=== PATIENT | female | born 1945 | race Caucasian/White ===

== ENCOUNTER 2021-03-22 14:25 | Emergency (ER) | payer OTHER, MEDICARE ==
[~2021-03-22] VITALS: Ht 165.1 cm; Wt 83.9 kg
[2021-03-22] MEDS ORDERED: TETANUS/DIPHTHERIA TOX ADULT 0.5 ML SYR IM ONE (16:30)
[2021-03-22 17:09] VITALS: BP 127/66
== END 2021-03-22 17:11 | disposition home or self-care (01) ==
LOC: ER 14:40
DX: S00.83XA Contusion of other part of head, initial encounter (principal); S51.011A Laceration without foreign body of right elbow, initial encounter; W01.0XXA Fall on same level from slipping, tripping and stumbling without subsequent striking against object, initial encounter; Y92.008 Other place in unspecified non-institutional (private) residence as the place of occurrence of the external cause; K21.9 Gastro-esophageal reflux disease without esophagitis; Z86.73 Personal history of transient ischemic attack (TIA), and cerebral infarction without residual deficits
CPT/HCPCS: 70450; 72125; 90471; 90714; 99284

== ENCOUNTER 2025-01-01 13:59 | Inpatient (IN) | payer MEDICARE ==
[~2025-01-01] VITALS: Ht 165.1 cm; Wt 83.9 kg
[~2025-01-01 13:59] MED LIST: BUSPIRONE HCL5 MG PO; OXCARBAZEPINE150 MG PO; PANTOPRAZOLE SO40 MG PO; SERTRALINE HCL100 MG PO
[2025-01-01 15:40] LABS: BASOPHILS % 0.3 % (0.0-1.0); EOSINOPHILS # (AUTO) 0.2 (0.0-0.4); EOSINOPHILS % 1.6 % (0.0-6.0); HEMATOCRIT 36.1 % (34.2-44.1); HEMOGLOBIN 11.5 g/dL (12.0-16.0); LYMPHOCYTES # (AUTO) 1.1 (1.0-3.2); MEAN CORPUSCULAR HEMOGLOBIN 27.6 pg (28-32); MEAN CORPUSCULAR HGB CONC 31.9 g/dL (31-35); MEAN CORPUSCULAR VOLUME 86.6 fL (81-99); MONOCYTES # (AUTO) 0.7 (0.2-0.8); MONOCYTES % 6.1 % (4.4-11.3); NEUTROPHILS # (AUTO) 8.8 (2.1-6.9); NEUTROPHILS % 80.7 % (38.7-80.0); PLATELET COUNT 365 x10e3/uL (140-360); RED BLOOD COUNT 4.17 x10e6/uL (3.6-5.1); RED CELL DISTRIBUTION WIDTH 16.1 % (11.7-14.4); WHITE BLOOD COUNT 10.91 x10e3/uL (4.8-10.8)
[2025-01-01 15:43] LABS: CLARITY,URINE SL CLOUDY (CLEAR); COLOR,URINE YELLOW (YELLOW); GLUCOSE, URINE NEGATIVE (NEGATIVE); KETONES,URINE TRACE (NEGATIVE); LEUKOCYTE ESTERASE ,URINE NEGATIVE (NEGATIVE); NITRITE,URINE POSITIVE (NEGATIVE); PH,URINE 6 (5 - 7); PROTEIN,URINE DIPSTICK NEGATIVE (NEGATIVE); URINE UROBILINOGEN 0.2 mg/dL (0.2 - 1)
[2025-01-01 15:44] LABS: BILIRUBIN,URINE NEGATIVE (NEGATIVE)
[2025-01-01 15:57] LABS: BACTERIA,URINE MANY /HPF; EPITHELIAL CELLS,URINE MANY /LPF; WBC,URINE (MAN) 0-5 /HPF (0-5)
[2025-01-01 15:58] LABS: CALCIUM OXALATE CRYSTALS,UR MODERATE (FEW)
[2025-01-01 16:02] LABS: ALBUMIN 2.3 g/dL (3.5-5.0); ALBUMIN/GLOBULIN RATIO 0.9 (0.8-2.0); ANION GAP 13.6 mmol/L (8-16); BILIRUBIN,TOTAL 0.5 mg/dL (0.2-1.2); CREATININE, SERUM 0.72 mg/dL (0.57-1.11); POTASSIUM 4.6 mmol/L (3.5-5.1); TOTAL PROTEIN 4.9 g/dL (6.5-8.1)
[2025-01-01 16:08] LABS: TROPONIN I 0.043 ng/mL (0-0.300)
[2025-01-01] MEDS ORDERED: ONDANSETRON HCL INJ 2MG/ML 2ML 2 MG/ML VIAL IV PRN (16:30)
[2025-01-01] MEDS ORDERED: SODIUM CHLORIDE 0.9% 1000ML 1,000 ML IV SCH (16:30)
[2025-01-01 18:06] VITALS: TEMP 97.5
[2025-01-01 19:14] VITALS: PULSE 69; RESP 19
[2025-01-01 20:00] VITALS: BP 142/65; PULSE 78; RESP 18; TEMP 97.5; O2SAT 100
[2025-01-01] MEDS: SODIUM CHLORIDE 0.9% 1000ML 1,000 ML IV SCH (20:41)
[2025-01-01] MEDS ORDERED: POLYETHYLENE GLYCOL 3350 17 GM PACK PO PRN (21:45)
[2025-01-01] MEDS ORDERED: ACETAMINOPHEN 325 MG TAB PO PRN (21:45)
[2025-01-01 23:04] LABS: TROPONIN I 0.041 ng/mL (0-0.300)
[2025-01-02] VITALS (13 sets, daily range): BP systolic 116–161; BP diastolic 72–96; PULSE 69–82; RESP 16–22; TEMP 96.7–97.8; O2SAT 95–100
[2025-01-02 06:08] LABS: BASOPHILS % 0.5 % (0.0-1.0); EOSINOPHILS # (AUTO) 0.2 (0.0-0.4); EOSINOPHILS % 3.1 % (0.0-6.0); HEMATOCRIT 34.2 % (34.2-44.1); HEMOGLOBIN 10.7 g/dL (12.0-16.0); LYMPHOCYTES # (AUTO) 0.9 (1.0-3.2); LYMPHOCYTES % 13.3 % (18.0-39.1); MEAN CORPUSCULAR HEMOGLOBIN 27.6 pg (28-32); MEAN CORPUSCULAR HGB CONC 31.3 g/dL (31-35); MEAN CORPUSCULAR VOLUME 88.4 fL (81-99); MONOCYTES # (AUTO) 0.7 (0.2-0.8); MONOCYTES % 10.6 % (4.4-11.3); NEUTROPHILS # (AUTO) 4.7 (2.1-6.9); NEUTROPHILS % 71.9 % (38.7-80.0); PLATELET COUNT 299 x10e3/uL (140-360); RED BLOOD COUNT 3.87 x10e6/uL (3.6-5.1); RED CELL DISTRIBUTION WIDTH 16.2 % (11.7-14.4); WHITE BLOOD COUNT 6.54 x10e3/uL (4.8-10.8)
[2025-01-02 06:43] LABS: ALBUMIN/GLOBULIN RATIO 0.9 (0.8-2.0); BILIRUBIN,TOTAL 0.8 mg/dL (0.2-1.2); CALCIUM 7.7 mg/dL (8.4-10.2); CREATININE, SERUM 0.75 mg/dL (0.57-1.11); TOTAL PROTEIN 4.3 g/dL (6.5-8.1)
[2025-01-02 06:45] LABS: TROPONIN I 0.017 ng/mL (0-0.300)
[2025-01-02 06:58] LABS: CHOL/HDL RATIO 1.8 (3.0-3.6); MAGNESIUM 1.7 MG/DL (1.3-2.1); PHOSPHORUS 3.3 MG/DL (2.3-4.7)
[2025-01-02 07:14] LABS: FOLATE 14.9 ng/mL (7.0-15.4)
[2025-01-02 07:19] LABS: FREE T4 (FREE THYROXINE) 0.87 ng/dL (0.8-1.8); THYROID STIMULATING HORMONE 1.711 uIU/mL (0.350-4.940)
[2025-01-02] MEDS: PANTOPRAZOLE SODIUM 20 MG TABLET.DR PO SCH (08:24)
[2025-01-02] MEDS: DOCUSATE SODIUM 100 MG CAP PO SCH (08:25)
[2025-01-02] MEDS: MAGNESIUM SULF 1GRAM/DEXTROSE 100 ML IV ONE (09:24)
[2025-01-02] MEDS ORDERED: FLECAINIDE ACE100 MG PO (12:36)
[2025-01-02] MEDS ORDERED: ELIQUIS5 MG PO (12:36)
[2025-01-02] MEDS ORDERED: RIVASTIGMINE1 EAC1 TD (12:36)
[2025-01-02] MEDS ORDERED: SERTRALINE HCL25 MG PO (12:36)
[2025-01-02] MEDS ORDERED: LEVOTHYROXINE25 MCG PO (12:36)
[2025-01-02] MEDS ORDERED: ASCORBIC ACID500 M2 PO (12:45)
[2025-01-02] MEDS ORDERED: FEROSUL325 MG PO (12:45)
[2025-01-02] MEDS ORDERED: VITAMIN B-121000 MCG PO (12:45)
[2025-01-02] MEDS: BUSPIRONE HCL 5 MG TAB PO SCH (15:09)
[2025-01-02] MEDS: APIXABAN 5 MG TABLET PO SCH (16:39)
[2025-01-03] VITALS (12 sets, daily range): BP systolic 108–195; BP diastolic 59–93; PULSE 72–87; RESP 16–22; TEMP 96.7–98; O2SAT 96–100
[2025-01-03] MEDS: LEVOTHYROXINE SODIUM 50 MCG TAB PO SCH (05:36)
[2025-01-03] MEDS: ASCORBIC ACID 500 MG TAB PO SCH (08:38)
[2025-01-03] MEDS: PANTOPRAZOLE SOD 40 MG TABEC PO SCH (08:38)
[2025-01-03] MEDS: MEROPENEM 1 GM in SODIUM CHLORIDE 0.9% 100 ML IV SCH ×2 (08:38→20:20)
[2025-01-03] MEDS: Morphine 2mg Syringe 2 MG/ML SYR IV PRN (12:10)
[2025-01-03] MEDS: HYDRALAZINE HCL 20 MG/ML VIAL IV PRN (12:10)
[2025-01-04] VITALS (9 sets, daily range): BP systolic 108–162; BP diastolic 65–97; PULSE 72–83; RESP 18–21; TEMP 97.3–98.2; O2SAT 95–100
[2025-01-04 06:22] LABS: BASOPHILS % 0.3 % (0.0-1.0); EOSINOPHILS # (AUTO) 0.3 (0.0-0.4); EOSINOPHILS % 4.6 % (0.0-6.0); HEMATOCRIT 35.2 % (34.2-44.1); LYMPHOCYTES # (AUTO) 0.9 (1.0-3.2); LYMPHOCYTES % 13.7 % (18.0-39.1); MEAN CORPUSCULAR HEMOGLOBIN 27.2 pg (28-32); MEAN CORPUSCULAR HGB CONC 31.3 g/dL (31-35); MEAN CORPUSCULAR VOLUME 86.9 fL (81-99); MONOCYTES # (AUTO) 0.6 (0.2-0.8); MONOCYTES % 9.4 % (4.4-11.3); NEUTROPHILS # (AUTO) 4.5 (2.1-6.9); NEUTROPHILS % 71.4 % (38.7-80.0); PLATELET COUNT 311 x10e3/uL (140-360); RED BLOOD COUNT 4.05 x10e6/uL (3.6-5.1); RED CELL DISTRIBUTION WIDTH 16.3 % (11.7-14.4); WHITE BLOOD COUNT 6.28 x10e3/uL (4.8-10.8)
[2025-01-04 06:48] LABS: BLOOD UREA NITROGEN 11 mg/dL (7-26); BUN/CREATININE RATIO 16 (6-25); CALCIUM 7.7 mg/dL (8.4-10.2); CARBON DIOXIDE 21 mmol/L (22-29); CHLORIDE 107 mmol/L (98-107); CREATININE, SERUM 0.67 mg/dL (0.57-1.11); EST GLOMERULAR FILTRATION RATE 89 ML/MIN (>=60); GLUCOSE 61 mg/dL (74-118); IRON 50 ug/dL (50-170); SODIUM 136 mmol/L (136-145); TRANSFERRIN < 70 mg/dL (180-382)
[2025-01-04] MEDS ORDERED: KLOR-CON M2020 MEQ (08:26)
[2025-01-04] MEDS ORDERED: LIDOCAINE1 EACH TP (08:26)
[2025-01-04] MEDS ORDERED: BUSPIRONE HCL10 MG PO (08:26)
[2025-01-04] MEDS ORDERED: OXCARBAZEPINE300 MG PO (08:29)
[2025-01-04] MEDS ORDERED: BUSPIRONE HCL 10 MG TABLET PO SCH (09:00)
[2025-01-04] MEDS ORDERED: OXCARBAZEPINE 300 MG TAB PO SCH (09:00)
[2025-01-04] MEDS: FLECAINIDE ACETATE 100 MG TAB PO SCH (11:24)
[2025-01-04] MEDS: FERROUS SULFATE 325 MG TAB PO SCH (11:24)
[2025-01-04] MEDS: CYANOCOBALAMIN 1,000 MCG TAB PO SCH (11:24)
[2025-01-04] MEDS: OXCARBAZEPINE 300 MG TAB PO SCH (11:25)
[2025-01-04] MEDS: LIDOCAINE 4% PATCH TP SCH (11:35)
[2025-01-04] MEDS: RIVASTIGMINE TRANSDERMAL 9.5MG/24HOURS PATCH TD SCH (14:08)
[2025-01-04] MEDS: POTASSIUM CHLORIDE 20 MEQ TAB CR PO SCH (14:09)
[2025-01-04] MEDS: SERTRALINE HCL 50 MG TAB PO SCH (14:09)
[2025-01-04] MEDS: SERTRALINE HCL 100 MG TAB PO SCH (14:10)
[2025-01-05] VITALS (8 sets, daily range): BP systolic 132–154; BP diastolic 74–80; PULSE 72–93; RESP 16–19; TEMP 97.3–98.4; O2SAT 95–100
[2025-01-05 06:35] LABS: BASOPHILS % 0.4 % (0.0-1.0); EOSINOPHILS # (AUTO) 0.3 (0.0-0.4); EOSINOPHILS % 3.2 % (0.0-6.0); HEMOGLOBIN 11.3 g/dL (12.0-16.0); LYMPHOCYTES % 12.7 % (18.0-39.1); MEAN CORPUSCULAR HEMOGLOBIN 27.4 pg (28-32); MEAN CORPUSCULAR HGB CONC 31.4 g/dL (31-35); MEAN CORPUSCULAR VOLUME 87.4 fL (81-99); MONOCYTES # (AUTO) 0.7 (0.2-0.8); MONOCYTES % 9.3 % (4.4-11.3); NEUTROPHILS # (AUTO) 5.8 (2.1-6.9); NEUTROPHILS % 73.8 % (38.7-80.0); PLATELET COUNT 337 x10e3/uL (140-360); RED BLOOD COUNT 4.12 x10e6/uL (3.6-5.1); RED CELL DISTRIBUTION WIDTH 16.1 % (11.7-14.4); WHITE BLOOD COUNT 7.87 x10e3/uL (4.8-10.8)
[2025-01-05 07:15] LABS: ANION GAP 12.8 mmol/L (8-16); CALCIUM 8.2 mg/dL (8.4-10.2); CREATININE, SERUM 0.69 mg/dL (0.57-1.11); POTASSIUM 3.8 mmol/L (3.5-5.1)
== END 2025-01-05 15:45 | DRG 689 ==
LOC: ER 14:03 → ERHOLD 16:20 → MED/SURG3 18:47
PROVIDERS: ADMIT Internal Medicine; ATTEND Internal Medicine
DX: N39.0 Urinary tract infection, site not specified (principal); G93.41 Metabolic encephalopathy; Z16.12 Extended spectrum beta lactamase (ESBL) resistance; F02.82 Dementia in other diseases classified elsewhere, unspecified severity, with psychotic disturbance; Z16.24 Resistance to multiple antibiotics; G30.9 Alzheimer's disease, unspecified; B96.20 Unspecified Escherichia coli [E. coli] as the cause of diseases classified elsewhere; I87.323 Chronic venous hypertension (idiopathic) with inflammation of bilateral lower extremity; Z96.0 Presence of urogenital implants; E03.9 Hypothyroidism, unspecified; K21.9 Gastro-esophageal reflux disease without esophagitis; R53.81 Other malaise; E66.9 Obesity, unspecified; Z68.30 Body mass index [BMI] 30.0-30.9, adult; E83.42 Hypomagnesemia; Z79.01 Long term (current) use of anticoagulants; Z79.890 Hormone replacement therapy; Z86.73 Personal history of transient ischemic attack (TIA), and cerebral infarction without residual deficits; Z90.49 Acquired absence of other specified parts of digestive tract
CPT/HCPCS: 36415; 51700; 70450; 71045; 72125; 72192; 80048; 80053; 80061; 81001; 82550; 82607; 82746; 83540; 83690; 83735; 83880; 84100; 84439; 84443; 84466; 84484; 85025; 85045; 87086; 87186; 93005; 93925; 93970; 94799; 99252; 99285; J0360; J2185; J2270; J2405; J2543; J3475; J7030; J7050

== ENCOUNTER 2025-01-10 17:00 | Emergency (ER) | payer MEDICARE, OTHER ==
[~2025-01-10] VITALS: Ht 165.1 cm; Wt 83.9 kg
[~2025-01-10 17:00] MED LIST changes: +ASCORBIC ACID500 M2 PO; +BUSPIRONE HCL10 MG PO; +ELIQUIS5 MG PO; +FEROSUL325 MG PO; +FLECAINIDE ACE100 MG PO; +KLOR-CON M2020 MEQ; +LEVOTHYROXINE25 MCG PO; +LIDOCAINE1 EACH TP; +OXCARBAZEPINE300 MG PO; +RIVASTIGMINE1 EAC1 TD; +SERTRALINE HCL25 MG PO; +VITAMIN B-121000 MCG PO
[2025-01-10 17:07] VITALS: TEMP 98.2
[2025-01-10 20:30] VITALS: PULSE 78; RESP 18
[2025-01-11 00:02] VITALS: BP 172/65; PULSE 76; RESP 18; TEMP 98.3; O2SAT 100
== END 2025-01-10 23:59 ==
LOC: ER 20:40
DX: M79.602 Pain in left arm (principal); S41.111A Laceration without foreign body of right upper arm, initial encounter; S50.02XA Contusion of left elbow, initial encounter; W18.39XA Other fall on same level, initial encounter; Y92.89 Other specified places as the place of occurrence of the external cause; G30.9 Alzheimer's disease, unspecified; F02.80 Dementia in other diseases classified elsewhere, unspecified severity, without behavioral disturbance, psychotic disturbance, mood disturbance, and anxiety; I48.91 Unspecified atrial fibrillation; K21.9 Gastro-esophageal reflux disease without esophagitis; Z79.01 Long term (current) use of anticoagulants; Z86.73 Personal history of transient ischemic attack (TIA), and cerebral infarction without residual deficits
CPT/HCPCS: 70450; 72125; 72170; 99285

== ENCOUNTER 2025-02-08 08:10 | Inpatient (IN) | payer MEDICARE ==
[~2025-02-08] VITALS: Ht 165.1 cm; Wt 83.9 kg
[2025-02-08 08:16] VITALS: TEMP 97.8
[2025-02-08 09:21] LABS: BASOPHILS % 0.3 % (0.0-1.0); EOSINOPHILS # (AUTO) 0.1 (0.0-0.4); EOSINOPHILS % 0.6 % (0.0-6.0); HEMATOCRIT 33.2 % (34.2-44.1); HEMOGLOBIN 10.3 g/dL (12.0-16.0); LYMPHOCYTES # (AUTO) 1.4 (1.0-3.2); LYMPHOCYTES % 9.9 % (18.0-39.1); MEAN CORPUSCULAR HEMOGLOBIN 27.8 pg (28-32); MEAN CORPUSCULAR VOLUME 89.5 fL (81-99); MONOCYTES # (AUTO) 0.8 (0.2-0.8); NEUTROPHILS # (AUTO) 11.6 (2.1-6.9); NEUTROPHILS % 82.5 % (38.7-80.0); PLATELET COUNT 319 x10e3/uL (140-360); RED BLOOD COUNT 3.71 x10e6/uL (3.6-5.1); RED CELL DISTRIBUTION WIDTH 18.1 % (11.7-14.4); WHITE BLOOD COUNT 14.04 x10e3/uL (4.8-10.8)
[2025-02-08 09:31] LABS: BILIRUBIN,URINE NEGATIVE (NEGATIVE); CLARITY,URINE CLOUDY (CLEAR); COLOR,URINE YELLOW (YELLOW); GLUCOSE, URINE NEGATIVE (NEGATIVE); KETONES,URINE NEGATIVE (NEGATIVE); LEUKOCYTE ESTERASE ,URINE SMALL (NEGATIVE); NITRITE,URINE NEGATIVE (NEGATIVE); PH,URINE 8.5 (5 - 7); PROTEIN,URINE DIPSTICK 2+ (NEGATIVE); URINE UROBILINOGEN 0.2 mg/dL (0.2 - 1)
[2025-02-08 09:40] LABS: BACTERIA,URINE MANY /HPF; EPITHELIAL CELLS,URINE MODERATE /LPF; INR 1.13; PROTHROMBIN TIME 15.2 seconds (11.9-14.5); RBC,URINE 21-50 /HPF (0-5); WBC,URINE (MAN) >50 /HPF (0-5)
[2025-02-08 09:41] LABS: PARTIAL THROMBOPLASTIN TIME 29.9 seconds (23.8-35.5); TRIPLE PHOSPHATE CRYSTAL,UR MANY
[2025-02-08 09:49] LABS: ALBUMIN 1.6 g/dL (3.5-5.0); ALBUMIN/GLOBULIN RATIO 0.5 (0.8-2.0); ANION GAP 14.2 mmol/L (8-16); BILIRUBIN,TOTAL 0.6 mg/dL (0.2-1.2); CALCIUM 7.9 mg/dL (8.4-10.2); CREATININE, SERUM 0.75 mg/dL (0.57-1.11); MAGNESIUM 1.7 MG/DL (1.3-2.1); TOTAL PROTEIN 4.7 g/dL (6.5-8.1); TROPONIN I 0.047 ng/mL (0-0.300)
[2025-02-08 09:50] LABS: POTASSIUM 3.2 mmol/L (3.5-5.1)
[2025-02-08] MEDS: SODIUM CHLORIDE 0.9% 1000ML 1,000 ML IV STA (10:36)
[2025-02-08] MEDS: MEROPENEM 1 GM in SODIUM CHLORIDE 0.9% 100 ML IV SCH (10:38)
[2025-02-08] MEDS ORDERED: ONDANSETRON HCL INJ 2MG/ML 2ML 2 MG/ML VIAL IV PRN (10:45)
[2025-02-08 11:12] LABS: CORONAVIRUS COVID-19 AG NEGATIVE (NEGATIVE); INFLUENZA A AG NEGATIVE (NEGATIVE); INFLUENZA B AG NEGATIVE (NEGATIVE)
[2025-02-08] MEDS: Vancomycin IV 1 GM in SODIUM CHLORIDE 0.9% 250ML 250 ML IV ONE (11:34)
[2025-02-08 12:24] VITALS: PULSE 91; RESP 20; O2SAT 96
[2025-02-08] MEDS: SODIUM CHLORIDE 0.9% 1000ML 1,000 ML IV SCH (13:59)
[2025-02-08 14:06] VITALS: PULSE 88; RESP 18
[2025-02-08 15:56] VITALS: BP 163/85; PULSE 82; RESP 18; TEMP 98.4; O2SAT 100
[2025-02-08] MEDS ORDERED: ACIDOPHILUS1 EAC1 PO (18:02)
[2025-02-08] MEDS ORDERED: ATIVAN1 MG PO (18:02)
[2025-02-08] MEDS ORDERED: CLOTRIMAZOLE-BE15 GM TOP (18:02)
[2025-02-08] MEDS ORDERED: POLYETHYLENE GLYCOL 3350 17 GM PACK PO PRN (19:15)
[2025-02-08 20:00] VITALS: BP 172/83; PULSE 86; RESP 18; TEMP 97.8; O2SAT 97
[2025-02-08 20:08] VITALS: PULSE 88; RESP 20; O2SAT 97
[2025-02-08] MEDS: LORAZEPAM 1 MG TAB PO PRN (20:35)
[2025-02-08] MEDS: BUSPIRONE HCL 10 MG TABLET PO SCH (20:35)
[2025-02-08] MEDS: MAGNESIUM SULF 1GRAM/DEXTROSE 100 ML IV ONE (20:35)
[2025-02-08] MEDS: BETAMETHASONE/CLOTRIMAZOLE CR 15 GM TUBE TOP SCH (20:40)
[2025-02-08] MEDS: POTASSIUM CITRATE ER 10 MEQ TAB PO ONE ×2 (20:41→20:57)
[2025-02-08] MEDS: FLECAINIDE ACETATE 100 MG TAB PO SCH (20:43)
[2025-02-08] MEDS: HYDRALAZINE HCL 20 MG/ML VIAL IV PRN (20:54)
[2025-02-09] MEDS: LEVOTHYROXINE SODIUM 25 MCG TABLET PO SCH (04:51)
[2025-02-09 05:21] LABS: BASOPHILS % 0.3 % (0.0-1.0); EOSINOPHILS # (AUTO) 0.1 (0.0-0.4); EOSINOPHILS % 1.4 % (0.0-6.0); HEMATOCRIT 26.8 % (34.2-44.1); HEMOGLOBIN 8.3 g/dL (12.0-16.0); LYMPHOCYTES % 13.6 % (18.0-39.1); MEAN CORPUSCULAR HEMOGLOBIN 27.6 pg (28-32); MONOCYTES # (AUTO) 0.6 (0.2-0.8); MONOCYTES % 7.2 % (4.4-11.3); NEUTROPHILS # (AUTO) 5.8 (2.1-6.9); NEUTROPHILS % 76.3 % (38.7-80.0); PLATELET COUNT 260 x10e3/uL (140-360); RED BLOOD COUNT 3.01 x10e6/uL (3.6-5.1); RED CELL DISTRIBUTION WIDTH 18.2 % (11.7-14.4); WHITE BLOOD COUNT 7.64 x10e3/uL (4.8-10.8)
[2025-02-09 05:59] LABS: ALBUMIN 1.4 g/dL (3.5-5.0); ALBUMIN/GLOBULIN RATIO 0.6 (0.8-2.0); ANION GAP 11.3 mmol/L (8-16); BILIRUBIN,TOTAL 0.4 mg/dL (0.2-1.2); CALCIUM 7.5 mg/dL (8.4-10.2); CREATININE, SERUM 0.58 mg/dL (0.57-1.11); TOTAL PROTEIN 3.9 g/dL (6.5-8.1)
[2025-02-09 06:01] LABS: POTASSIUM 3.3 mmol/L (3.5-5.1)
[2025-02-09 06:25] LABS: IRON 23 ug/dL (50-170); TRANSFERRIN < 70 mg/dL (180-382)
[2025-02-09 06:40] LABS: FERRITIN 286.61 ng/mL (4.63-204.00)
[2025-02-09 06:49] LABS: FOLATE 6.6 ng/mL (7.0-15.4)
[2025-02-09] MEDS: DOCUSATE SODIUM 100 MG CAP PO SCH (09:00)
[2025-02-09] MEDS ORDERED: SERTRALINE HCL 100 MG TAB PO SCH (09:00)
[2025-02-09] MEDS: ASCORBIC ACID 500 MG TAB PO SCH (09:54)
[2025-02-09] MEDS: FERROUS SULFATE 325 MG TAB PO SCH (09:54)
[2025-02-09] MEDS: SERTRALINE HCL 100 MG TAB PO SCH (09:54)
[2025-02-09] MEDS: SERTRALINE HCL 50 MG TAB PO SCH (09:56)
[2025-02-09] MEDS: LIDOCAINE 4% PATCH TP SCH (09:56)
[2025-02-09 10:11] VITALS: BP 137/83; PULSE 109; RESP 18; TEMP 97.7; O2SAT 100
[2025-02-09 12:02] VITALS: PULSE 103; RESP 20; O2SAT 97
[2025-02-09 12:26] VITALS: BP 137/83; PULSE 103; RESP 20; TEMP 97.7; O2SAT 97
[2025-02-09 13:40] LABS: CDIFF AG QUIK CHEK **POSITIVE** (NEGATIVE); CDIFF TOX QUIK CHEK NEGATIVE (NEGATIVE)
[2025-02-09] MEDS: RIVASTIGMINE TRANSDERMAL 9.5MG/24HOURS PATCH TD SCH (18:08)
[2025-02-09 18:26] VITALS: BP 122/61; PULSE 68; RESP 18; TEMP 97.9; O2SAT 98
[2025-02-09 20:00] VITALS: BP 122/61; PULSE 68; RESP 18; TEMP 97.9; O2SAT 98
[2025-02-09 20:13] VITALS: BP 135/79; PULSE 89; RESP 16; TEMP 98.6; O2SAT 100
[2025-02-10] VITALS (8 sets, daily range): BP systolic 135–167; BP diastolic 56–81; PULSE 82–90; RESP 18–21; TEMP 98.1–98.6; O2SAT 99–100
[2025-02-10 05:34] LABS: BASOPHILS % 0.4 % (0.0-1.0); EOSINOPHILS # (AUTO) 0.1 (0.0-0.4); HEMATOCRIT 29.6 % (34.2-44.1); HEMOGLOBIN 8.9 g/dL (12.0-16.0); LYMPHOCYTES % 14.6 % (18.0-39.1); MEAN CORPUSCULAR HEMOGLOBIN 27.5 pg (28-32); MEAN CORPUSCULAR HGB CONC 30.1 g/dL (31-35); MEAN CORPUSCULAR VOLUME 91.4 fL (81-99); MONOCYTES # (AUTO) 0.5 (0.2-0.8); MONOCYTES % 6.6 % (4.4-11.3); NEUTROPHILS # (AUTO) 5.2 (2.1-6.9); NEUTROPHILS % 75.4 % (38.7-80.0); PLATELET COUNT 272 x10e3/uL (140-360); RED BLOOD COUNT 3.24 x10e6/uL (3.6-5.1); RED CELL DISTRIBUTION WIDTH 18.4 % (11.7-14.4); WHITE BLOOD COUNT 6.93 x10e3/uL (4.8-10.8)
[2025-02-10 06:02] LABS: ALBUMIN 1.4 g/dL (3.5-5.0); ALBUMIN/GLOBULIN RATIO 0.6 (0.8-2.0); ANION GAP 10.2 mmol/L (8-16); BILIRUBIN,TOTAL 0.5 mg/dL (0.2-1.2); CALCIUM 7.4 mg/dL (8.4-10.2); CREATININE, SERUM 0.56 mg/dL (0.57-1.11); TOTAL PROTEIN 3.9 g/dL (6.5-8.1)
[2025-02-10 06:06] LABS: POTASSIUM 3.2 mmol/L (3.5-5.1)
[2025-02-10 06:16] LABS: IRON 26 ug/dL (50-170); TRANSFERRIN < 70 mg/dL (180-382)
[2025-02-10 06:37] LABS: THYROID STIMULATING HORMONE 4.007 uIU/mL (0.350-4.940)
[2025-02-10 06:52] LABS: FOLATE 5.8 ng/mL (7.0-15.4)
[2025-02-10] MEDS: DEXTROSE 5% 500ML 500 ML IV ONE (12:40)
[2025-02-10] MEDS: SODIUM FERRIC GLUCONATE COMPLX 125 MG in SODIUM CHLORIDE 0.9% 100 ML IV SCH (12:40)
[2025-02-11] VITALS (7 sets, daily range): BP systolic 129–170; BP diastolic 57–76; PULSE 76–86; RESP 18–21; TEMP 97.1–98.7; O2SAT 98–100
[2025-02-11 05:34] LABS: BASOPHILS % 0.1 % (0.0-1.0); EOSINOPHILS # (AUTO) 0.2 (0.0-0.4); EOSINOPHILS % 2.8 % (0.0-6.0); HEMATOCRIT 26.8 % (34.2-44.1); HEMOGLOBIN 8.1 g/dL (12.0-16.0); LYMPHOCYTES # (AUTO) 1.1 (1.0-3.2); MEAN CORPUSCULAR HEMOGLOBIN 27.6 pg (28-32); MEAN CORPUSCULAR HGB CONC 30.2 g/dL (31-35); MEAN CORPUSCULAR VOLUME 91.5 fL (81-99); MONOCYTES # (AUTO) 0.4 (0.2-0.8); MONOCYTES % 6.6 % (4.4-11.3); NEUTROPHILS # (AUTO) 4.8 (2.1-6.9); PLATELET COUNT 246 x10e3/uL (140-360); RED BLOOD COUNT 2.93 x10e6/uL (3.6-5.1); RED CELL DISTRIBUTION WIDTH 18.4 % (11.7-14.4); WHITE BLOOD COUNT 6.71 x10e3/uL (4.8-10.8)
[2025-02-11 06:03] LABS: ANION GAP 10.2 mmol/L (8-16); CALCIUM 7.7 mg/dL (8.4-10.2); CREATININE, SERUM 0.57 mg/dL (0.57-1.11)
[2025-02-11 06:06] LABS: POTASSIUM 3.2 mmol/L (3.5-5.1)
[2025-02-11] MEDS: PANTOPRAZOLE SOD 40 MG TABEC PO SCH (10:11)
[2025-02-11] MEDS: FOLIC ACID/CYANOCOB/PYRIDOXINE TAB PO SCH (10:12)
[2025-02-11 12:28] LABS: MAGNESIUM 1.8 MG/DL (1.3-2.1); PHOSPHORUS 2.6 MG/DL (2.3-4.7)
[2025-02-11] MEDS: POTASSIUM CITRATE ER 10 MEQ TAB PO ONE (15:18)
[2025-02-12] VITALS (8 sets, daily range): BP systolic 136–163; BP diastolic 50–84; PULSE 71–85; RESP 16–20; TEMP 97.3–98.3; O2SAT 98–100
[2025-02-12 11:26] LABS: ANION GAP 12.7 mmol/L (8-16); CALCIUM 7.9 mg/dL (8.4-10.2); CREATININE, SERUM 0.54 mg/dL (0.57-1.11); POTASSIUM 3.7 mmol/L (3.5-5.1)
[2025-02-12] MEDS: LACTOBACILLUS ACIDOPHILUS CAPSULE PO PRN (16:25)
[2025-02-12] MEDS: BALSAM PERU/CASTOR OIL 60 GM OINT...G. TP PRN (16:29)
[2025-02-12] MEDS: ACETAMINOPHEN 325 MG TAB PO PRN (20:32)
[2025-02-13] VITALS (9 sets, daily range): BP systolic 111–169; BP diastolic 55–87; PULSE 72–87; RESP 15–22; TEMP 97.5–98.7; O2SAT 96–100
[2025-02-13 05:19] LABS: BASOPHILS % 0.3 % (0.0-1.0); EOSINOPHILS # (AUTO) 0.3 (0.0-0.4); EOSINOPHILS % 3.1 % (0.0-6.0); HEMOGLOBIN 8.5 g/dL (12.0-16.0); LYMPHOCYTES # (AUTO) 1.1 (1.0-3.2); LYMPHOCYTES % 12.9 % (18.0-39.1); MEAN CORPUSCULAR HEMOGLOBIN 28.5 pg (28-32); MEAN CORPUSCULAR HGB CONC 31.5 g/dL (31-35); MEAN CORPUSCULAR VOLUME 90.6 fL (81-99); MONOCYTES # (AUTO) 0.6 (0.2-0.8); MONOCYTES % 7.1 % (4.4-11.3); NEUTROPHILS # (AUTO) 6.5 (2.1-6.9); NEUTROPHILS % 75.3 % (38.7-80.0); PLATELET COUNT 266 x10e3/uL (140-360); RED BLOOD COUNT 2.98 x10e6/uL (3.6-5.1); RED CELL DISTRIBUTION WIDTH 18.7 % (11.7-14.4); WHITE BLOOD COUNT 8.58 x10e3/uL (4.8-10.8)
[2025-02-13 05:45] LABS: ANION GAP 10.5 mmol/L (8-16); CALCIUM 7.7 mg/dL (8.4-10.2); CREATININE, SERUM 0.56 mg/dL (0.57-1.11); POTASSIUM 3.5 mmol/L (3.5-5.1)
[2025-02-13] MEDS: POTASSIUM CHLORIDE 10MEQ EA PO ONE (09:59)
[2025-02-14 03:31] VITALS: BP 132/62; PULSE 83; RESP 20; TEMP 98.1; O2SAT 98
[2025-02-14 05:44] LABS: BASOPHILS % 0.3 % (0.0-1.0); EOSINOPHILS # (AUTO) 0.2 (0.0-0.4); EOSINOPHILS % 2.2 % (0.0-6.0); HEMATOCRIT 25.5 % (34.2-44.1); LYMPHOCYTES # (AUTO) 1.3 (1.0-3.2); LYMPHOCYTES % 16.8 % (18.0-39.1); MEAN CORPUSCULAR HEMOGLOBIN 28.1 pg (28-32); MEAN CORPUSCULAR HGB CONC 31.4 g/dL (31-35); MEAN CORPUSCULAR VOLUME 89.5 fL (81-99); MONOCYTES # (AUTO) 0.7 (0.2-0.8); MONOCYTES % 8.8 % (4.4-11.3); NEUTROPHILS # (AUTO) 5.5 (2.1-6.9); NEUTROPHILS % 71.1 % (38.7-80.0); PLATELET COUNT 275 x10e3/uL (140-360); RED BLOOD COUNT 2.85 x10e6/uL (3.6-5.1); RED CELL DISTRIBUTION WIDTH 18.6 % (11.7-14.4); WHITE BLOOD COUNT 7.76 x10e3/uL (4.8-10.8)
[2025-02-14 06:13] LABS: ANION GAP 11.8 mmol/L (8-16); CALCIUM 7.7 mg/dL (8.4-10.2); CREATININE, SERUM 0.56 mg/dL (0.57-1.11); MAGNESIUM 1.7 MG/DL (1.3-2.1); PHOSPHORUS 2.8 MG/DL (2.3-4.7); POTASSIUM 3.8 mmol/L (3.5-5.1)
[2025-02-14 08:05] VITALS: BP 132/69; PULSE 81; RESP 18; TEMP 97.9; O2SAT 98
[2025-02-14 09:54] VITALS: BP 132/69; PULSE 81; RESP 18; TEMP 97.9; O2SAT 98
[2025-02-14 11:26] VITALS: BP 123/67; PULSE 80; RESP 19; TEMP 97.9; O2SAT 96
[2025-02-14] MEDS ORDERED: KETAMINE 50MG/5ML SYR ONE (14:13)
[2025-02-14] MEDS ORDERED: FENTANYL CITRATE/PF 100MCG/2 ML INJ ONE (14:13)
[2025-02-14] MEDS ORDERED: PROPOFOL IV EMULSION 50 ML IV ONE (14:13)
[2025-02-14] MEDS ORDERED: LIDOCAINE HCL 2% LOCAL INJ 5 ML SDV VIAL INJ ONE (14:13)
[2025-02-14] MEDS ORDERED: ACETAMINOPHEN 1000 MG/100 ML 100 ML IV ONE (14:13)
[2025-02-14] MEDS ORDERED: DEXAMETHASONE SOD PHOS INJ 4 MG/ML SDV ONE (15:27)
[2025-02-14 20:00] VITALS: BP 126/78; PULSE 82; RESP 18; TEMP 97.6; O2SAT 97
[2025-02-14 21:00] VITALS: BP 126/78; PULSE 82; RESP 18; TEMP 97.6; O2SAT 97
[2025-02-14] MEDS: DOCUSATE SODIUM 100 MG CAP PO SCH (21:00)
[2025-02-15 03:21] VITALS: BP 130/79; PULSE 69; RESP 16; TEMP 97.6; O2SAT 97
[2025-02-15 05:28] LABS: BASOPHILS % 0.2 % (0.0-1.0); EOSINOPHILS % 0.2 % (0.0-6.0); HEMATOCRIT 29.8 % (34.2-44.1); LYMPHOCYTES # (AUTO) 1.2 (1.0-3.2); LYMPHOCYTES % 11.9 % (18.0-39.1); MEAN CORPUSCULAR HEMOGLOBIN 27.7 pg (28-32); MEAN CORPUSCULAR HGB CONC 30.2 g/dL (31-35); MEAN CORPUSCULAR VOLUME 91.7 fL (81-99); MONOCYTES # (AUTO) 0.7 (0.2-0.8); MONOCYTES % 6.9 % (4.4-11.3); NEUTROPHILS # (AUTO) 7.7 (2.1-6.9); NEUTROPHILS % 79.5 % (38.7-80.0); PLATELET COUNT 271 x10e3/uL (140-360); RED BLOOD COUNT 3.25 x10e6/uL (3.6-5.1); RED CELL DISTRIBUTION WIDTH 18.9 % (11.7-14.4); WHITE BLOOD COUNT 9.65 x10e3/uL (4.8-10.8)
[2025-02-15 06:05] LABS: ANION GAP 12.8 mmol/L (8-16); CALCIUM 7.8 mg/dL (8.4-10.2); CREATININE, SERUM 0.56 mg/dL (0.57-1.11); POTASSIUM 3.8 mmol/L (3.5-5.1)
[2025-02-15 08:00] VITALS: BP 131/77; PULSE 80; RESP 20; TEMP 98.3; O2SAT 100
[2025-02-15 09:33] VITALS: BP 131/77; PULSE 80; RESP 20; TEMP 98.3; O2SAT 100
[2025-02-15 12:00] VITALS: BP 117/91; PULSE 89; RESP 20; TEMP 98.6; O2SAT 99
[2025-02-15] MEDS ORDERED: PROTONIX40 MG/ML PO (13:02)
[2025-02-15] MEDS ORDERED: Folic Acid/Cyanocob/Pyridoxine PO (13:02)
== END 2025-02-15 15:19 | DRG 516 ==
LOC: ER 08:18 → ERHOLD 10:42 → MED/SURG 14:02
PROVIDERS: ADMIT Internal Medicine; ATTEND Internal Medicine
PROC: 0PS43ZZ Reposition Thoracic Vertebra, Percutaneous Approach (ICD-10-PCS; 2025-02-14)
PROC: 0PU43JZ Supplement Thoracic Vertebra with Synthetic Substitute, Percutaneous Approach (ICD-10-PCS; 2025-02-14)
PROC: 0QU03JZ Supplement Lumbar Vertebra with Synthetic Substitute, Percutaneous Approach (ICD-10-PCS; 2025-02-14)
PROC: 0QS03ZZ Reposition Lumbar Vertebra, Percutaneous Approach (ICD-10-PCS; principal; 2025-02-14 15:20)
DX: S32.029A Unspecified fracture of second lumbar vertebra, initial encounter for closed fracture (principal); E87.0 Hyperosmolality and hypernatremia; S22.089A Unspecified fracture of T11-T12 vertebra, initial encounter for closed fracture; N30.00 Acute cystitis without hematuria; S00.83XA Contusion of other part of head, initial encounter; S10.83XA Contusion of other specified part of neck, initial encounter; S41.112A Laceration without foreign body of left upper arm, initial encounter; S41.111A Laceration without foreign body of right upper arm, initial encounter; W18.30XA Fall on same level, unspecified, initial encounter; Y92.122 Bedroom in nursing home as the place of occurrence of the external cause; E86.0 Dehydration; B96.4 Proteus (mirabilis) (morganii) as the cause of diseases classified elsewhere; Z22.39 Carrier of other specified bacterial diseases; I48.0 Paroxysmal atrial fibrillation; Z79.01 Long term (current) use of anticoagulants; R29.6 Repeated falls; M48.061 Spinal stenosis, lumbar region without neurogenic claudication; M51.369 Other intervertebral disc degeneration, lumbar region without mention of lumbar back pain or lower extremity pain; I44.0 Atrioventricular block, first degree; E87.6 Hypokalemia; E55.9 Vitamin D deficiency, unspecified; E53.8 Deficiency of other specified B group vitamins; R62.7 Adult failure to thrive; Z68.30 Body mass index [BMI] 30.0-30.9, adult; K21.9 Gastro-esophageal reflux disease without esophagitis; D50.9 Iron deficiency anemia, unspecified; G30.9 Alzheimer's disease, unspecified; F02.80 Dementia in other diseases classified elsewhere, unspecified severity, without behavioral disturbance, psychotic disturbance, mood disturbance, and anxiety; L89.151 Pressure ulcer of sacral region, stage 1; K52.9 Noninfective gastroenteritis and colitis, unspecified; M26.609 Unspecified temporomandibular joint disorder, unspecified side; Z66 Do not resuscitate; Z86.73 Personal history of transient ischemic attack (TIA), and cerebral infarction without residual deficits; Z79.899 Other long term (current) drug therapy
CPT/HCPCS: 36415; 51700; 70450; 71045; 72125; 72146; 72148; 74176; 76000; 80048; 80053; 81001; 82270; 82550; 82607; 82728; 82746; 83540; 83735; 83880; 84100; 84443; 84466; 84484; 85025; 85045; 85610; 85730; 87086; 87186; 87324; 87449; 93005; 93306; 94799; 99252; 99284; J0360; J0690; J1100; J2003; J2185; J2470; J2916; J3475; J7030; J7050; J7060

== ENCOUNTER 2025-02-24 17:35 | Inpatient (IN) | payer MEDICARE ==
[~2025-02-24] VITALS: Ht 165.1 cm; Wt 83.9 kg
[~2025-02-24 17:35] MED LIST changes: +ACIDOPHILUS1 EAC1 PO; +ATIVAN1 MG PO; +CLOTRIMAZOLE-BE15 GM TOP; +Folic Acid/Cyanocob/Pyridoxine PO; +PROTONIX40 MG/ML PO
[2025-02-24 17:50] VITALS: TEMP 97.6
[2025-02-24 18:29] LABS: BASOPHILS % 0.1 % (0.0-1.0); EOSINOPHILS % 0.1 % (0.0-6.0); HEMATOCRIT 34.3 % (34.2-44.1); HEMOGLOBIN 10.7 g/dL (12.0-16.0); LYMPHOCYTES # (AUTO) 0.8 (1.0-3.2); LYMPHOCYTES % 7.2 % (18.0-39.1); MEAN CORPUSCULAR HEMOGLOBIN 28.2 pg (28-32); MEAN CORPUSCULAR HGB CONC 31.2 g/dL (31-35); MEAN CORPUSCULAR VOLUME 90.5 fL (81-99); MONOCYTES # (AUTO) 0.4 (0.2-0.8); MONOCYTES % 3.1 % (4.4-11.3); NEUTROPHILS # (AUTO) 9.9 (2.1-6.9); NEUTROPHILS % 88.3 % (38.7-80.0); PLATELET COUNT 357 x10e3/uL (140-360); RED BLOOD COUNT 3.79 x10e6/uL (3.6-5.1); RED CELL DISTRIBUTION WIDTH 18.6 % (11.7-14.4); WHITE BLOOD COUNT 11.21 x10e3/uL (4.8-10.8)
[2025-02-24] MEDS: SODIUM CHLORIDE 0.9% 1000ML 1,000 ML IV STA (18:37)
[2025-02-24] MEDS: ACETAMINOPHEN 325 MG TAB PO STA (18:41)
[2025-02-24 18:53] LABS: ALBUMIN 1.4 g/dL (3.5-5.0); ALBUMIN/GLOBULIN RATIO 0.5 (0.8-2.0); ANION GAP 12.7 mmol/L (8-16); BILIRUBIN,TOTAL 0.6 mg/dL (0.2-1.2); CALCIUM 7.5 mg/dL (8.4-10.2); CREATININE, SERUM 0.51 mg/dL (0.57-1.11); POTASSIUM 3.7 mmol/L (3.5-5.1); TOTAL PROTEIN 4.5 g/dL (6.5-8.1)
[2025-02-24 18:58] LABS: STREPTOCOCCUS GRP A ANTIGEN NEGATIVE (NEGATIVE)
[2025-02-24 18:59] LABS: TROPONIN I 0.028 ng/mL (0-0.300)
[2025-02-24 19:14] LABS: CORONAVIRUS COVID-19 AG NEGATIVE (NEGATIVE); INFLUENZA A AG NEGATIVE (NEGATIVE); INFLUENZA B AG NEGATIVE (NEGATIVE)
[2025-02-24 20:15] VITALS: PULSE 66; RESP 19
[2025-02-24 20:15] LABS: CLARITY,URINE SL CLOUDY (CLEAR); COLOR,URINE YELLOW (YELLOW)
[2025-02-24 20:16] LABS: BILIRUBIN,URINE NEGATIVE (NEGATIVE); GLUCOSE, URINE NEGATIVE (NEGATIVE); KETONES,URINE NEGATIVE (NEGATIVE); LEUKOCYTE ESTERASE ,URINE NEGATIVE (NEGATIVE); NITRITE,URINE POSITIVE (NEGATIVE); PH,URINE 5.5 (5 - 7); PROTEIN,URINE DIPSTICK NEGATIVE (NEGATIVE); URINE UROBILINOGEN 0.2 mg/dL (0.2 - 1)
[2025-02-24 20:27] LABS: BACTERIA,URINE MANY /HPF; EPITHELIAL CELLS,URINE MANY /LPF; RBC,URINE 0-5 /HPF (0-5); WBC,URINE (MAN) 0-5 /HPF (0-5)
[2025-02-24 20:31] LABS: CALCIUM OXALATE CRYSTALS,UR MODERATE (FEW)
[2025-02-24] MEDS: SODIUM CHLORIDE 0.9% 1000ML 1,000 ML IV SCH (21:07)
[2025-02-24 22:24] VITALS: BP 117/61; PULSE 69; RESP 22; TEMP 97.5; O2SAT 99
[2025-02-24 23:35] VITALS: PULSE 71; RESP 16; O2SAT 98
[2025-02-25] VITALS (9 sets, daily range): BP systolic 113–146; BP diastolic 62–81; PULSE 70–110; RESP 17–20; TEMP 97.3–98; O2SAT 91–100
[2025-02-25] MEDS ORDERED: ACIDOPHILUS1 EACH (06:59)
[2025-02-25] MEDS ORDERED: ZOLOFT50 MG (06:59)
[2025-02-25] MEDS ORDERED: HYDROCODON-ACE1 EA11 PO (06:59)
[2025-02-25] MEDS ORDERED: ANTI-DIARRHEAL2 MG (06:59)
[2025-02-25] MEDS ORDERED: TRILEPTAL300 MG PO (06:59)
[2025-02-25] MEDS ORDERED: FLUCONAZOLE150 MG (06:59)
[2025-02-25] MEDS ORDERED: ZOLOFT100 MG PO (06:59)
[2025-02-25] MEDS ORDERED: ASPIRIN81 MG PO (06:59)
[2025-02-25] MEDS ORDERED: TYLENOL325 MG PO (06:59)
[2025-02-25] MEDS ORDERED: QUESTRAN PACKET4 GM PO (06:59)
[2025-02-25 07:24] LABS: BASOPHILS % 0.3 % (0.0-1.0); HEMATOCRIT 32.4 % (34.2-44.1); HEMOGLOBIN 9.4 g/dL (12.0-16.0); LYMPHOCYTES % 9.3 % (18.0-39.1); MEAN CORPUSCULAR HEMOGLOBIN 28.6 pg (28-32); MEAN CORPUSCULAR VOLUME 98.5 fL (81-99); MONOCYTES # (AUTO) 0.5 (0.2-0.8); MONOCYTES % 4.5 % (4.4-11.3); NEUTROPHILS # (AUTO) 8.9 (2.1-6.9); NEUTROPHILS % 84.1 % (38.7-80.0); PLATELET COUNT 226 x10e3/uL (140-360); RED BLOOD COUNT 3.29 x10e6/uL (3.6-5.1); RED CELL DISTRIBUTION WIDTH 18.9 % (11.7-14.4); WHITE BLOOD COUNT 10.56 x10e3/uL (4.8-10.8)
[2025-02-25 07:46] LABS: ALBUMIN 1.1 g/dL (3.5-5.0); ALBUMIN/GLOBULIN RATIO 0.4 (0.8-2.0); BILIRUBIN,TOTAL 0.5 mg/dL (0.2-1.2); CALCIUM 7.1 mg/dL (8.4-10.2); CREATININE, SERUM 0.5 mg/dL (0.57-1.11); TOTAL PROTEIN 3.7 g/dL (6.5-8.1)
[2025-02-25 08:08] LABS: TROPONIN I 0.029 ng/mL (0-0.300)
[2025-02-25] MEDS: PANTOPRAZOLE SOD 40 MG TABEC PO SCH (09:04)
[2025-02-25] MEDS ORDERED: POLYETHYLENE GLYCOL 3350 17 GM PACK PO PRN (15:45)
[2025-02-25 15:56] LABS: TROPONIN I 0.032 ng/mL (0-0.300)
[2025-02-25 16:09] LABS: MAGNESIUM 1.5 MG/DL (1.3-2.1); PHOSPHORUS 3.3 MG/DL (2.3-4.7)
[2025-02-25] MEDS ORDERED: LORAZEPAM 0.5 MG TAB PO PRN (16:45)
[2025-02-25] MEDS: OXCARBAZEPINE 300 MG TAB PO SCH (17:31)
[2025-02-25] MEDS: FLECAINIDE ACETATE 100 MG TAB PO SCH (17:31)
[2025-02-25] MEDS: NYSTATIN 15 GM POWDER UD BTL TOP SCH (17:32)
[2025-02-25] MEDS: BETAMETHASONE/CLOTRIMAZOLE CR 15 GM TUBE TOP SCH (17:32)
[2025-02-25] MEDS ORDERED: HYDROCODONE/APAP 5MG-325MG TAB PO PRN (18:00)
[2025-02-25] MEDS: BUSPIRONE HCL 10 MG TABLET PO SCH (20:18)
[2025-02-26] VITALS (9 sets, daily range): BP systolic 120–146; BP diastolic 69–84; PULSE 83–93; RESP 16–18; TEMP 97.7–98.8; O2SAT 96–100
[2025-02-26 05:11] LABS: BASOPHILS % 0.2 % (0.0-1.0); EOSINOPHILS % 0.3 % (0.0-6.0); HEMOGLOBIN 9.3 g/dL (12.0-16.0); LYMPHOCYTES % 19.8 % (18.0-39.1); MEAN CORPUSCULAR HEMOGLOBIN 28.7 pg (28-32); MEAN CORPUSCULAR HGB CONC 32.1 g/dL (31-35); MEAN CORPUSCULAR VOLUME 89.5 fL (81-99); MONOCYTES # (AUTO) 0.5 (0.2-0.8); MONOCYTES % 5.1 % (4.4-11.3); NEUTROPHILS # (AUTO) 7.2 (2.1-6.9); PLATELET COUNT 340 x10e3/uL (140-360); RED BLOOD COUNT 3.24 x10e6/uL (3.6-5.1); RED CELL DISTRIBUTION WIDTH 18.6 % (11.7-14.4); WHITE BLOOD COUNT 9.88 x10e3/uL (4.8-10.8)
[2025-02-26] MEDS: LEVOTHYROXINE SODIUM 25 MCG TABLET PO SCH (05:34)
[2025-02-26 05:35] LABS: ANION GAP 10.4 mmol/L (8-16); CALCIUM 7.2 mg/dL (8.4-10.2); CREATININE, SERUM 0.58 mg/dL (0.57-1.11)
[2025-02-26 05:36] LABS: IRON 37 ug/dL (50-170); TRANSFERRIN < 70 mg/dL (180-382)
[2025-02-26 05:46] LABS: FERRITIN 727.68 ng/mL (4.63-204.00)
[2025-02-26 05:48] LABS: POTASSIUM 3.4 mmol/L (3.5-5.1)
[2025-02-26] MEDS: SERTRALINE HCL 100 MG TAB PO SCH (09:38)
[2025-02-26] MEDS: LACTOBACILLUS ACIDOPHILUS CAPSULE PO PRN (09:38)
[2025-02-26] MEDS: ASPIRIN 81 MG CHEW TAB PO SCH (09:38)
[2025-02-26] MEDS: SERTRALINE HCL 50 MG TAB PO SCH (09:38)
[2025-02-26] MEDS: FOLIC ACID/CYANOCOB/PYRIDOXINE TAB PO SCH (09:38)
[2025-02-26] MEDS: RIVASTIGMINE TRANSDERMAL 9.5MG/24HOURS PATCH TD SCH (09:40)
[2025-02-26] MEDS: ASCORBIC ACID 500 MG TAB PO SCH (09:40)
[2025-02-26] MEDS: CHOLESTYRAMINE 4 GM PACKET PO SCH (09:40)
[2025-02-26] MEDS: MEROPENEM 1 GM in SODIUM CHLORIDE 0.9% 100 ML IV SCH (12:55)
[2025-02-26] MEDS: HEPARIN SOD (PORCINE) 5,000 UNIT/ML VIAL SC SCH (20:47)
[2025-02-27] VITALS (10 sets, daily range): BP systolic 131–150; BP diastolic 63–92; PULSE 89–107; RESP 17–21; TEMP 97.6–99; O2SAT 91–100
[2025-02-28] VITALS (8 sets, daily range): BP systolic 130–157; BP diastolic 62–93; PULSE 72–88; RESP 17–19; TEMP 97.3–98.2; O2SAT 93–99
[2025-02-28] MEDS: SODIUM CHLORIDE 0.9% 250ML 250 ML ONE (00:15)
[2025-02-28 08:19] LABS: BASOPHILS % 0.2 % (0.0-1.0); EOSINOPHILS # (AUTO) 0.1 (0.0-0.4); EOSINOPHILS % 0.8 % (0.0-6.0); HEMATOCRIT 30.8 % (34.2-44.1); HEMOGLOBIN 9.3 g/dL (12.0-16.0); LYMPHOCYTES % 20.3 % (18.0-39.1); MEAN CORPUSCULAR HEMOGLOBIN 28.4 pg (28-32); MEAN CORPUSCULAR HGB CONC 30.2 g/dL (31-35); MEAN CORPUSCULAR VOLUME 94.2 fL (81-99); MONOCYTES # (AUTO) 0.4 (0.2-0.8); MONOCYTES % 4.5 % (4.4-11.3); NEUTROPHILS % 71.8 % (38.7-80.0); PLATELET COUNT 237 x10e3/uL (140-360); RED BLOOD COUNT 3.27 x10e6/uL (3.6-5.1); RED CELL DISTRIBUTION WIDTH 18.8 % (11.7-14.4)
[2025-02-28] MEDS: ALBUMIN 5% 0.05 GM/ML BTL IV ONE (08:26)
[2025-02-28 08:45] LABS: ALBUMIN 1.1 g/dL (3.5-5.0); ALBUMIN/GLOBULIN RATIO 0.4 (0.8-2.0); ANION GAP 11.9 mmol/L (8-16); BILIRUBIN,TOTAL 0.4 mg/dL (0.2-1.2); CALCIUM 7.4 mg/dL (8.4-10.2); CREATININE, SERUM 0.55 mg/dL (0.57-1.11); POTASSIUM 3.9 mmol/L (3.5-5.1)
[2025-02-28] MEDS: ACETAMINOPHEN 325 MG TAB PO PRN (16:52)
[2025-03-01] VITALS (8 sets, daily range): BP systolic 132–163; BP diastolic 66–85; PULSE 75–101; RESP 18–20; TEMP 97.6–98.6; O2SAT 92–100
[2025-03-01 05:24] LABS: BASOPHILS % 0.3 % (0.0-1.0); EOSINOPHILS # (AUTO) 0.2 (0.0-0.4); EOSINOPHILS % 2.5 % (0.0-6.0); HEMATOCRIT 26.3 % (34.2-44.1); HEMOGLOBIN 8.2 g/dL (12.0-16.0); LYMPHOCYTES # (AUTO) 1.5 (1.0-3.2); LYMPHOCYTES % 21.4 % (18.0-39.1); MEAN CORPUSCULAR HEMOGLOBIN 29.1 pg (28-32); MEAN CORPUSCULAR HGB CONC 31.2 g/dL (31-35); MEAN CORPUSCULAR VOLUME 93.3 fL (81-99); MONOCYTES # (AUTO) 0.4 (0.2-0.8); MONOCYTES % 5.3 % (4.4-11.3); NEUTROPHILS # (AUTO) 4.7 (2.1-6.9); NEUTROPHILS % 65.6 % (38.7-80.0); PLATELET COUNT 215 x10e3/uL (140-360); RED BLOOD COUNT 2.82 x10e6/uL (3.6-5.1); RED CELL DISTRIBUTION WIDTH 18.4 % (11.7-14.4); WHITE BLOOD COUNT 7.19 x10e3/uL (4.8-10.8)
[2025-03-01 06:10] LABS: ANION GAP 9.7 mmol/L (8-16); CALCIUM 7.1 mg/dL (8.4-10.2); CREATININE, SERUM 0.51 mg/dL (0.57-1.11); POTASSIUM 3.7 mmol/L (3.5-5.1)
[2025-03-01] MEDS ORDERED: DEXTROSE 50% SYRINGE 50 ML IV ONE (08:00)
[2025-03-01] MEDS: DEXTROSE 50% SYRINGE 50 ML IV ONE (08:17)
[2025-03-01] MEDS: FUROSEMIDE INJ 10 MG/ML 2 ML VIAL IV ONE (08:43)
[2025-03-02] VITALS (7 sets, daily range): BP systolic 107–154; BP diastolic 66–103; PULSE 80–91; RESP 16–20; TEMP 97.1–98.7; O2SAT 95–100
[2025-03-02 05:25] LABS: BASOPHILS % 0.2 % (0.0-1.0); EOSINOPHILS # (AUTO) 0.2 (0.0-0.4); EOSINOPHILS % 1.2 % (0.0-6.0); HEMATOCRIT 30.6 % (34.2-44.1); HEMOGLOBIN 9.7 g/dL (12.0-16.0); LYMPHOCYTES # (AUTO) 2.2 (1.0-3.2); LYMPHOCYTES % 17.1 % (18.0-39.1); MEAN CORPUSCULAR HEMOGLOBIN 29.1 pg (28-32); MEAN CORPUSCULAR HGB CONC 31.7 g/dL (31-35); MEAN CORPUSCULAR VOLUME 91.9 fL (81-99); MONOCYTES # (AUTO) 0.7 (0.2-0.8); MONOCYTES % 5.5 % (4.4-11.3); NEUTROPHILS # (AUTO) 9.5 (2.1-6.9); NEUTROPHILS % 73.1 % (38.7-80.0); PLATELET COUNT 338 x10e3/uL (140-360); RED BLOOD COUNT 3.33 x10e6/uL (3.6-5.1); RED CELL DISTRIBUTION WIDTH 18.3 % (11.7-14.4); WHITE BLOOD COUNT 12.94 x10e3/uL (4.8-10.8)
[2025-03-02 05:50] LABS: ALBUMIN 1.4 g/dL (3.5-5.0); ALBUMIN/GLOBULIN RATIO 0.4 (0.8-2.0); ANION GAP 12.9 mmol/L (8-16); BILIRUBIN,TOTAL 0.5 mg/dL (0.2-1.2); CALCIUM 7.5 mg/dL (8.4-10.2); CREATININE, SERUM 0.56 mg/dL (0.57-1.11); POTASSIUM 3.9 mmol/L (3.5-5.1); TOTAL PROTEIN 4.6 g/dL (6.5-8.1)
[2025-03-02] MEDS: HYDRALAZINE HCL 20 MG/ML VIAL IV PRN (05:52)
[2025-03-02] MEDS: ONDANSETRON HCL INJ 2MG/ML 2ML 2 MG/ML VIAL IV PRN (05:52)
[2025-03-02] MEDS: HYDROMORPHONE 1MG/1ML INJ IV STA (05:53)
[2025-03-02] MEDS ORDERED: PREGABALIN 75 MG CAP PO SCH (11:15)
== END 2025-03-02 16:28 | disposition hospice, inpatient (51) | DRG 689 ==
LOC: ER 17:52 → ERHOLD 20:01 → MED/SURG 21:35 → MED/SURG2 03-02 12:54
PROVIDERS: ADMIT Internal Medicine; ATTEND Internal Medicine
DX: N39.0 Urinary tract infection, site not specified (principal); G93.41 Metabolic encephalopathy; E44.0 Moderate protein-calorie malnutrition; Z16.12 Extended spectrum beta lactamase (ESBL) resistance; B96.20 Unspecified Escherichia coli [E. coli] as the cause of diseases classified elsewhere; R09.02 Hypoxemia; D63.8 Anemia in other chronic diseases classified elsewhere; R62.7 Adult failure to thrive; Z68.30 Body mass index [BMI] 30.0-30.9, adult; Z71.3 Dietary counseling and surveillance; K21.9 Gastro-esophageal reflux disease without esophagitis; R60.1 Generalized edema; I10 Essential (primary) hypertension; I48.0 Paroxysmal atrial fibrillation; Z79.01 Long term (current) use of anticoagulants; Z87.891 Personal history of nicotine dependence; E55.9 Vitamin D deficiency, unspecified; E77.8 Other disorders of glycoprotein metabolism; G30.9 Alzheimer's disease, unspecified; F02.80 Dementia in other diseases classified elsewhere, unspecified severity, without behavioral disturbance, psychotic disturbance, mood disturbance, and anxiety; Z91.81 History of falling; Z51.5 Encounter for palliative care; Z86.73 Personal history of transient ischemic attack (TIA), and cerebral infarction without residual deficits; S32.029D Unspecified fracture of second lumbar vertebra, subsequent encounter for fracture with routine healing; W19.XXXD Unspecified fall, subsequent encounter; S22.089D Unspecified fracture of T11-T12 vertebra, subsequent encounter for fracture with routine healing; M26.609 Unspecified temporomandibular joint disorder, unspecified side; Z66 Do not resuscitate; Z98.890 Other specified postprocedural states; Z79.899 Other long term (current) drug therapy; Z11.52 Encounter for screening for COVID-19
CPT/HCPCS: 36415; 51700; 71045; 80048; 80053; 81001; 82550; 82607; 82728; 82746; 82948; 83036; 83518; 83540; 83605; 83690; 83735; 83880; 84100; 84466; 84484; 85025; 85045; 87040; 87070; 87086; 87186; 93005; 94799; 99252; 99285; J0360; J1171; J1644; J1940; J2185; J2405; J2470; J2543; J7030; J7050; J7799